=== PATIENT | female | born 1965 | race Caucasian/White ===

== ENCOUNTER 2017-02-06 15:11 | Outpatient (CLI) | payer OTHER ==
[2017-02-06 18:21] LABS: BASOPHILS # (AUTO) 0.1 10^3/uL (0.0-0.1); BASOPHILS % (AUTO) 0.9 %; EOSINOPHILS # (AUTO) 0.1 10^3/uL (0.0-0.7); EOSINOPHILS % (AUTO) 0.8 %; HCT - HEMATOCRIT 39.8 % (37.0-47.0); HGB - HEMOGLOBIN 13.4 g/dL (12.0-16.0); LYMPHOCYTES # (AUTO) 2.2 10^3/uL (1.5-3.5); MEAN CORPUSCULAR HEMOGLOBIN 33.3 pg (27.0-31.0); MEAN CORPUSCULAR HGB CONC 33.8 g/dL (32.0-36.0); MEAN CORPUSCULAR VOLUME 98.7 fL (81.0-99.0); MEAN PLATELET VOLUME 7.8 fL (7.9-10.8); MONOCYTES # (AUTO) 0.5 10^3/uL (0.0-1.0); MONOCYTES % (AUTO) 7.3 %; NEUTROPHILS # (AUTO) 4.1 10^3/uL (1.5-6.6); RED BLOOD COUNT 4.03 10^6/uL (4.20-5.40); RED CELL DISTRIBUTION WIDTH 11.8 % (12.0-15.0)
[2017-02-06 18:35] LABS: ALBUMIN/GLOBULIN RATIO 1.5 (1.0-2.2); AMYLASE 65 U/L (28-100); BILIRUBIN,TOTAL 0.6 mg/dL (0.2-1.0); BUN - BLOOD UREA NITROGEN 9 mg/dL (6-20); CALCIUM 9.4 mg/dL (8.5-10.3); CARBON DIOXIDE - CO2 27 mmol/L (21-32); CHLORIDE 101 mmol/L (101-111); CREATININE 0.7 mg/dL (0.4-1.0); GFR - MDRD 89 (>89); GLUCOSE 89 mg/dL (70-100); LIPASE 40 U/L (22-51); POTASSIUM 3.9 mmol/L (3.5-5.0); SODIUM 138 mmol/L (135-145); TOTAL PROTEIN 7.4 g/dL (6.7-8.2)
== END 2017-02-06 15:12 | disposition home or self-care (01) ==
LOC: LAB.F 15:11
PROVIDERS: ATTEND Nurse Practitioner Family
DX: R10.9 Unspecified abdominal pain (principal)
CPT/HCPCS: 36415; 80053; 82150; 83690; 84443; 85025

== ENCOUNTER 2022-11-20 09:21 | Outpatient (CLI) | payer OTHER ==
--- NOTE | 2022-11-21 11:09 | Ultrasound Report ---
LIMITED ULTRASOUND OF RIGHT BREAST: 11/20/2022 CLINICAL: Palpable left breast lump, focal asymmetry in the right breast. Comparison is made to exam dated: 11/20/2022 mammogram - [facility]. Ultrasound of the right breast 11-1 o'clock region was performed. Hall scale images of the real-time examination were reviewed. IMPRESSION: PROBABLY BENIGN There is no abnormality seen in the right breast to correspond with the mammography finding. A follow-up mammogram in 6 months is recommended to demonstrate stability mammographic focal asymmetr y. This exam was interpreted at Station ID: [id number]. Electronically Signed By: Seb Cancino M.D. lc/:11/20/2022 12:08:31 Ultrasound BI-RADS: 3 Probably benign BI-RADS CATEGORY: (3) - 3 Mammogram [id number] 6 month follow-up LATERALITY: (B)
--- NOTE | 2022-11-21 11:09 | Mammography Report ---
BILATERAL DIGITAL DIAGNOSTIC MAMMOGRAM 3D/2D: 11/20/2022 CLINICAL: Baseline exam. Palpable left breast lump by physician. No prior exams were available for comparison. There are scattered areas of fibroglandular density in both breasts (category b / 25%-50% glandular t issue). There is a focal asymmetry in the right breast at 12 o'clock anterior depth. There is a possible focal asymmetry in the left breast at 3 o'clock posterior depth. This is close t o the palpable marker and may correspond. No other significant masses or calcifications are seen in either breast. IMPRESSION: INCOMPLETE: NEEDS ADDITIONAL IMAGING EVALUATION The focal asymmetry in the right breast at 12 o'clock anterior depth is indeterminate. An ultrasound is recommended. The possible focal asymmetry in the left breast at 3 o'clock posterior depth is indeterminate. An ul trasound is recommended. This is close to the palpable marker and may correspond. Based on the Tyrer Cuzick model (a risk assessment model) the patients lifetime risk is 13.1% and he r 10 year risk is 4.0%. According to the ACR, ACS, and NCCN guidelines, an annual breast MRI exam renato ng with mammogram is recommended if the patients lifetime risk is 20% or greater. This exam was interpreted at Station ID: [id number]. NOTE: For mammograms, a report in lay terms will be sent to the patient. Approximately 15% of breast malignancies will not be visualized mammographically. In the management of a palpable breast mass, a negative mammogram must not discourage biopsy of a clinically suspicious lesion. Electronically Signed By: Seb Cancino M.D. lc/:11/21/2022 10:42:05 Entry: - 11/21/2022 10:42:05 ACR BI-RADS Category 0: Incomplete 3340F PARENCHYMAL PATTERN: (A) - The breast(s) demonstrate(s) scattered fibroglandular densities. BI-RADS CATEGORY: (0) - 0 Ultrasound [id number] Immediate follow-up LATERALITY: (B)
--- NOTE | 2022-11-21 11:09 | Ultrasound Report ---
LIMITED ULTRASOUND OF LEFT BREAST: 11/20/2022 CLINICAL: Palpable left breast lump. Comparison is made to exam dated: 11/20/2022 mammogram - [facility]. Ultrasound of the left breast 3 o'clock region was performed. Hall scale images of the real-time ex amination were reviewed. IMPRESSION: PROBABLY BENIGN There is no abnormality seen in the left breast to correspond with the area of clinical concern and m ammography finding. A follow-up mammogram in 6 months is recommended to demonstrate stability of the mammographic focal a symmetry. This exam was interpreted at Station ID: [id number]. Electronically Signed By: Seb Cancino M.D. lc/:11/20/2022 12:07:39 Ultrasound BI-RADS: 3 Probably benign BI-RADS CATEGORY: (3) - 3 Mammogram [id number] 6 month follow-up LATERALITY: (B)
== END 2022-11-20 09:22 | disposition home or self-care (01) ==
LOC: DI 09:21
PROVIDERS: ATTEND Physician Assistant Medical
DX: N63.25 Unspecified lump in the left breast, overlapping quadrants (principal); R92.8 Other abnormal and inconclusive findings on diagnostic imaging of breast